=== PATIENT | female | born 1995 | race African-American/Black ===

== ENCOUNTER 2018-06-26 18:23 | Inpatient (IN) | payer MEDICAID, OTHER ==
[2018-06-26] MEDS ORDERED: Morphine 4 MG/ML VIAL ONE (20:23)
[2018-06-26] MEDS ORDERED: metroNIDAZOLE 500 MG/100 ML BAG ONE (20:24)
--- NOTE | 2018-06-26 21:54 | ULT ---
RIGHT UPPER QUADRANT ULTRASOUND 06/26/18 HISTORY: Right upper quadrant pain. Multiple longitudinal and transverse images of the right upper quadrant of the abdomen is obtained us ing a multihertz curvilinear transducer. Real time, color flow and spectral waveform doppler analysis demonstrate the liver to be unremarkable. The gallbladder is contracted and contains numerous echogenic areas compatible with gallstones. No ev idence of intrahepatic biliary dilatation seen. Common bile duct is also dilated measuring 7 mm. The visualized portions of the pancreas is unremarka ble. The right kidney is somewhat small but no evidence of significant hydronephrosis or masses. Right kidney measures 8.3 cm from pole to pole. IMPRESSION: 1. Contracted and stone filled gallbladder. 2. Common bile duct is moderately dilated. The findings compatible with cholelithiasis and possi ble choledocholithiasis. POS: [facility]
[2018-06-26] MEDS ORDERED: Ondansetron PF 4 MG/2 ML Vial IVP PRN (22:01)
[2018-06-26] MEDS ORDERED: Ondansetron ODT 4 MG TAB PO PRN (22:01)
[2018-06-26] MEDS ORDERED: Acetaminophen 325 MG TAB PO PRN (22:01)
[2018-06-26 22:54] VITALS: BMI 27.3
[2018-06-27] MEDS ORDERED: Morphine 2 MG/ML SYRINGE SLOW IVP PRN (00:50)
[2018-06-27] MEDS ORDERED: Morphine 4 MG/ML VIAL SLOW IVP PRN ×2 (01:21→04:15)
[2018-06-27] MEDS ORDERED: Morphine 4 MG/ML VIAL ONE (01:28)
[2018-06-27] MEDS: Ketorolac Tromethamine 30 MG/ML VIAL IVP PRN ×2 (04:19→11:46)
[2018-06-27] MEDS: metroNIDAZOLE 500 MG in Premix Bag 1 BAG IVPB SCH ×3 (05:25→22:37)
[2018-06-27 06:55] LABS: #Eosinphils 0.1 thou/uL (0.0-0.7); #Lymphocytes 1.8 thou/uL (1.20-3.40); #Monocytes 0.6 thou/uL (0.11-0.59); #Neutrophils 9.2 thou/uL (1.40-6.50); %Basophils 0.1 % (0.0-1.0); %Eosinophils 0.8 % (0.0-10.0); %Lymphocytes 15.2 % (21.0-51.0); %Monocytes 5.5 % (0.0-10.0); %Neutrophils 78.5 % (42.0-75.0); Hemoglobin 11.5 g/dL (12.0-16.0); Mean Corpuscular Hemoglobin 28.8 pg (27.0-31.0); Mean Platelet Volume 8.8 fL (7.4-10.4); Platelet Count 325 thou/uL (130-400); RBC Distribution Width 12.6 % (11.5-14.5); Red Blood Cell (RBC) Count 3.99 mill/uL (4.20-5.40); White Blood Cell (WBC) Count 11.7 thou/uL (4.8-10.8)
[2018-06-27 07:10] LABS: Anion Gap 9 mmol/L (10-20); BUN (Urea Nitrogen) 6 mg/dL (7.0-18.7); Calc. Creatinine Clearance 176 mL/min (70-130); Calcium 8.2 mg/dL (7.8-10.44); Carbon Dioxide 29 mmol/L (22-29); Chloride 103 mmol/L (98-107); Estimated GFR-MDRD Greater than 90; Glucose 114 mg/dL (70-105); Potassium 3.2 mmol/L (3.5-5.1); Sodium 138 mmol/L (136-145)
[2018-06-27] MEDS ORDERED: Prevnar 13-Val Conj/PF 0.5 ML SYRINGE IM ONE (09:00)
[2018-06-27] MEDS: Morphine 2 MG/ML SYRINGE SLOW IVP PRN ×3 (09:24→20:05)
--- NOTE | 2018-06-27 11:53 | PRG ---
DATE OF SERVICE: SUBJECTIVE: The patient reports that she is feeling a little bit better this morning. She does report that she ate some breakfast this morning. PHYSICAL EXAMINATION: VITAL SIGNS: T-max 98.1, pulse 93-102, respirations 16 to 20, O2 saturation 96 % on room air, BP 110/73. GENERAL APPEARANCE: Age-appropriate female. She is in no distress. Awake, alert, pleasant, and cooperative. HEENT: PERRL. No OP lesions. HEART: Regular rate and rhythm without murmurs, gallops, or rubs. LUNGS: Clear to auscultation bilaterally. No wheezes or rales. ABDOMEN: Reveals tenderness to palpation in the right lower quadrant and right upper quadrant, slightly more so in the right upper quadrant with a positive Chatterjee sign. EXTREMITIES: She has left-sided weakness and some muscle atrophy. No edema. PSYCH: The patient has a bit of a child-like manner, but otherwise has appropriate affect and behavior. LABORATORY DATA: White count 11.7, hemoglobin 11.5, platelets 325. Sodium 138, potassium 3.2, chloride 103, CO2 29, BUN 6, creatinine 0.56, glucose 114, and calcium 8.2. IMPRESSION AND PLAN: 1. Right upper quadrant abdominal pain with tenderness and positive Chatterjee sign with abdominal ultrasound revealing multiple gallstones and a contracted gallbladder with a common bile duct that is moderately dilated compatible with cholelithiasis and possible choledocholithiasis. Consult General Surgery. 2. Colitis. The patient had evidence of colitis on the CT scan indicating a very long segment of inflammatory appearance of the sigmoid and left colon with no evident cause. The patient is actually not tender in the suprapubic and left pelvic or left lower quadrant areas. The etiology of this is not known, certainly could be viral. The patient does report some diarrhea. Her stool Campylobacter and Shiga toxins were negative. Lactoferrin is elevated. She is on Levaquin and Flagyl and GI was consulted. 3. Chlamydia. The patient's chlamydial DNA probe was positive. The ER records indicate that she had "pelvic mass" bilaterally on her bimanual exam. The patient reports that she did not have significant tenderness on that exam. However, she does have some right lower quadrant tenderness on surface exam. We will consult gynecology to help elucidate this further to ensure the patient is not having some evidence of pelvic inflammatory disease. test was negative. 4. Bacterial vaginosis, should be adequately treated with Flagyl. 5. Urinary tract infection. Urine was positive. It may be secondary to the chlamydia. We will continue with the Levaquin and follow up cultures. 6. History of childhood brain tumors with the craniotomy resulted in some left- sided weakness. Job ID: [id number] [facility]
[2018-06-27] MEDS ORDERED: Azithromycin 250 MG TAB PO SCH (12:00)
--- NOTE | 2018-06-27 17:13 | PDOC.EVN ---
Event Note - Event Note Event Note: Consulted by Lisa. Consult dictated. 22 yo BF admitted with RLQ pain, diarrhea. Had +chlamydia testing outside. On exam now pt. is only tender to deep palpation low on right side. Abdominal USG shows gallstones, CT shows colitis. Has had Zithromax and Flagyl. Will obtain pelvic USG to further evaluate pelvis.
--- NOTE | 2018-06-27 18:37 | ULT ---
PELVIC ULTRASOUND: HISTORY: Pelvic pain. TECHNIQUE: Multiple longitudinal and transverse images of the pelvis are obtained using a Multi-Hertz curvilinea r transabdominal, as well as Multi-Hertz endovaginal transducer. FINDINGS: Real-time, color-flow, and spectral wave-form Doppler analysis demonstrates the uterus to measure 7 x 3.2 x 5.4 cm. No evidence of a uterine mass is seen. The endometrium has a double-wall thickness o f 10 mm. Both ovaries are visualized with good flood flow. The right ovary measures 2.4 x 1.4 x 1.9 cm, while the left measures 1.9 x 1.2 x 1.5 cm. A small amount of free fluid is seen in the cul-de-sac, adjacent to the right ovary. A small amount of fluid is seen in the endometrial canal. IMPRESSION: 1. Small amount of free pelvic fluid. 2. No evidence of ovarian masses or lesions. POS: [facility]
--- NOTE | 2018-06-27 19:31 | PDOC.EVN ---
Event Note - Event Note Event Note: Pelvic USG is nonfocal w/o evidence of mass, only small amount of fluid seen. As pain is focal rather than diffuse, suspect colitis as source rather than PID despite + chlamydia of cervix.. Discussed with Dr. Singh, he will change ABX to Zosyn and doxycycline.
--- NOTE | 2018-06-27 19:34 | PDOC.EVN ---
Event Note - Event Note Event Note: Rx plan discussed with architectural engineering teacher, abt's reconciled to address both GI and infection, will place pt in rocephin/flagyl for gi, and zithromax/doxy for as per [employer] recs'
[2018-06-27] MEDS: cefTRIAXone\\ROCEPHIN 1 GM in Sodium Chloride 0.9% 100 ML IVPB SCH (20:11)
[2018-06-27] MEDS ORDERED: Ondansetron ODT 4 MG TAB SL PRN (20:18)
[2018-06-27] MEDS ORDERED: Ondansetron PF 4 MG/2 ML Vial SLOW IVP PRN (20:19)
[2018-06-27] MEDS: Doxycycline 100 MG CAP PO SCH (20:25)
--- NOTE | 2018-06-27 21:44 | CON ---
DATE OF CONSULTATION: 06/27/2018 REASON FOR CONSULT: Colitis, gallstones, and abdominal pain. HISTORY OF PRESENT ILLNESS: Ms. Molina is a 22-year-old female from [place], [place], who came to the emergency room it seems secondary to abdominal pain for several days duration. 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 She is disabled, stays at home. She reports she has no real medical problems except for little bit of depression. In triage on Thursday in the emergency room, the complaint was intermittent cramping and stabbing right lower quadrant pain into her vaginal area, started when she had her period, but then her symptoms persisted mainly on the right side of the abdomen, sometimes right lower, sometimes right upper abdomen, although in the emergency room, they noted the right lower quadrant pain. Occasionally, it becomes sharp, lasted up to 15 seconds. She makes no mention of diarrhea until asked about it, then she did tell me that she has had a couple of loose stools for about 4 or 5 days since all this started. She went to the emergency room because the pain was so severe. She denied any vaginal discharge. Ultimately, she was found to have urine positive for Trichomonas and the vaginal exam positive for chlamydia. She had a CAT scan was some thickening in the pelvis organs and also with thickening of the descending colon and sigmoid colon, and she was found to have gallstones as well. The patient notes that her last sexual contact was about a week or two before her last menstrual cycle, it was about 3 weeks ago. She does note she has had some different contacts, although not very many. REVIEW OF SYSTEMS: CONSTITUTIONAL: Negative for fever, chills, headaches, vision change, or eye problems. HEENT: Negative. CARDIOVASCULAR: No chest pain, shortness of breath, dyspnea on exertion, or palpitations. RESPIRATORY: Negative for cough, shortness of breath, wheezing, or orthopnea. GI: Negative for constipation. Negative for nausea. Negative for rectal bleeding. Positive for two loose stools a day for the last 3 days. : Negative for dysuria, hematuria, vaginal bleeding, or vaginal discharge. MUSCULOSKELETAL: Negative. SKIN: Negative. NEUROLOGIC: Focal weakness in the left side, for which she uses a wheelchair and walk with a cane. MEDICATIONS: Medications at home, none. Medications here; 1. Tylenol. 2. Zithromax. 3. Toradol. 4. Levofloxacin. 5. Metronidazole. PHYSICAL EXAMINATION: GENERAL: She is resting comfortably in bed, greatly anticipating having dinner. She is thin. VITAL SIGNS: Temperature is 97.8. HEENT: Oropharynx, no lesions. NECK: Supple. There is no adenopathy. LUNGS: Clear. HEART: Regular rate and rhythm. No rubs, gallops, or murmurs. ABDOMEN: Pretty benign at this point in time. She points to the right upper abdomen, where she has pain, but there is no Chatterjee sign. There is no rebound. There is no guarding. EXTREMITIES: No clubbing, cyanosis, or edema. LABORATORY STUDIES: Stool is negative for Campylobacter and Ciguatoxins, white blood cells are positive. White count was 14 yesterday, 11.7 today; hemoglobin 11.5, platelet count 325. Comprehensive metabolic profile normal on admission. Lipase 18. 3.2. Lactic acid was 0.4, never elevated. Chlamydia probe was positive. Gonorrhea probe not detected. IMAGING DATA: Ultrasound of upper quadrant showed a contracted stone in gallbladder, mildly prominent common bile duct. Pelvic ultrasound showed no overt masses or lesions. Small amount of free pelvic fluid in the cul-de-sac. CT scan of the abdomen and pelvis showed a long mild segment of inflammatory change in the sigmoid and left colon per Radiology. ASSESSMENT: This 22-year-old female came to the hospital for lower abdominal cramping that radiated to the vaginal area, which seemed to not be typical of the cramping she has through her menstrual cycle. She has had a little bit of loose stool. She has no fever. The pain is more right-sided. Now, she feels better. She is eating dinner. She has had multiple findings including gallstones on ultrasound and a CAT scan, a questionable prominent common bile duct and some mild thickening of the sigmoid colon as well as positive vaginal exam for Trichomonas and chlamydia, but negative for gonorrhea. I do not think that she has symptomatic gallstones and talking with her, she never has pain after eating. She may have had an acute gastroenteritis. She has a little bit of thickening in the descending sigmoid colon and that may represent a little bit of colitis, it could be sexually mediated. However, she has no discharge or rectal pain or anal pain and she had no gonorrhea. The chlamydia may be a longstanding infection. RECOMMENDATIONS: I would observe her for now and treat her as you are. If she has further diarrhea, we would consider stool studies. HIV test offer that to her and she agrees. General Surgery is going to get a HIDA scan, it sounds like in talking with the nurses and that is okay, but I do not think that she has acute cholecystitis. Job ID: [id number]
--- NOTE | 2018-06-27 21:47 | CON ---
DATE OF CONSULTATION: REASON FOR CONSULT: Abdominal pain and gallstones. HISTORY OF PRESENT ILLNESS: Ms. Molina is a 22-year-old woman who reports onset of crampy intermittent right-sided abdominal pain since shortly after her period on 06/14. She states that it is not unusual for her to have this kind of pain after her period, but usually it goes away and this time it did not. It became so persistent and severe that she decided to come into the emergency room. A CT scan showed a possible gallstone, but no other gallbladder abnormality. She did have a redundant cecum and due to her thin body habitus, the appendix was difficult to clearly see, but there was a thin air-filled structure felt to be a normal appendix in the right pelvis and no secondary signs of appendicitis like stranding or fluid. The patient states she is feeling better since coming to the hospital. She states that the pain is worse when she gets up and moves around, but not worse when she eats. She ate a normal lunch today and has been eating throughout. She denies any nausea or vomiting. She has had a little diarrhea. The CT also showed some possible mild stranding in the sigmoid colon, but she does not have any tenderness on the left side. Gynecologic testing did come back positive for chlamydia. The patient does not have any previous history of pelvic inflammatory disease or tubo-ovarian abscess and the adnexa did not look abnormal on CT on admission. A gallbladder ultrasound showed what looked like a very small contracted gallbladder around an oblong stone. The bile duct was normal caliber. The patient denies any fevers or chills and now her only complaint is the abdominal pain, which she states is worse in the right lower quadrant. She denies any significant vaginal discharge or pain with intercourse. PAST MEDICAL HISTORY: Brain tumors treated with resection, radiation, and chemotherapy as a young child. PAST SURGICAL HISTORY: Brain tumor resection ALLERGIES: SHE HAS NO KNOWN DRUG ALLERGIES. MEDICATIONS: She does not take any medications as an outpatient. She is not on control, but was told that she is likely sterile due to chemotherapy as a child. Inpatient medications include levofloxacin and Flagyl as well as p.r.n. morphine, Tylenol, and Toradol. She was also started on Zithromax recently. SOCIAL HISTORY: The patient does not use illicit drugs. She smokes one pack per month and drinks socially on occasion. FAMILY HISTORY: Noncontributory. REVIEW OF SYSTEMS: 10-system review of systems is negative except per HPI. PHYSICAL EXAMINATION: VITAL SIGNS: The patient has been afebrile through her hospital stay. Other vital signs are normal. GENERAL: Reveals a pleasant young woman, in no acute distress. HEENT: Unremarkable except for alopecia. NECK: Supple without lymphadenopathy or thyroid nodules. HEART: Regular in its rate and rhythm without murmurs, rubs, or gallops. LUNGS: Clear to auscultation bilaterally. ABDOMEN: Soft and nondistended. She does not have any palpable masses or hernias. She is tender to palpation in the right lower quadrant, but does not exhibit any tenderness to palpation in the right upper quadrant. Apparently, she was tender in the right upper quadrant earlier in her hospital stay according to some of her other doctor notes, however. She also does not exhibit any pain in the left abdomen. She does not have any rigidity, rebound, or guarding. EXTREMITIES: Warm and well perfused without edema. NEUROLOGIC: She does have some atrophy related to her brain surgery, but otherwise no acute focal findings. PSYCHIATRIC: Alert, oriented, and appropriate. LABORATORY DATA: White count was mildly elevated on admission at 14, has come down to 11.7. She does have a slight left shift, hematocrit 37, and platelets 325. Electrolytes were unremarkable. Her potassium was low this morning at 3.2. LFTs were all normal as was lipase. UA had moderate leukocyte esterase, but was contaminated with 4 to 6 squamous cells. She had clue cells present on her vaginal swab and positive chlamydia, but negative gonorrhea. DIAGNOSTIC STUDIES: CT and ultrasound images were reviewed with the radiologist and I agree with their written report. ASSESSMENT: Right-sided abdominal pain of unclear etiology. On my examination , she did not exhibit any tenderness in the right upper quadrant, but apparently this has been somewhat variable. She does not have any exacerbation of her symptoms with eating, which would be typical with biliary colic. On my examination, all of her tenderness was in the right lower quadrant, which could be related to her chlamydia. I think it is very unlikely that she has appendicitis since she has been having the symptoms for 2 weeks now and has never had any fevers or chills. She ate a full lunch, so I favor getting a HIDA scan. The gallbladder definitely looks abnormal, but it does not look typical for acute cholecystitis; instead it looks very small and contracted. She may benefit from laparoscopic cholecystectomy, but currently I doubt that her gallbladder is responsible for her symptoms. She is on appropriate antibiotics for cholecystitis if this is indeed present. Gynecology has been consulted and has ordered a pelvic ultrasound as well. I will make her n.p.o. after midnight and follow up with her after her HIDA scan. Job ID: [id number] [facility]
--- NOTE | 2018-06-28 00:07 | CON ---
DATE OF CONSULTATION: 06/27/2018 REASON FOR CONSULTATION: Abdominal pain with positive chlamydia. PMH: Brain cancer diagnosed at age 53 year old Past surgical history: Craniotomy at 3 years old Past social history: Denies alcohol, tobacco, or drug use HISTORY OF PRESENT ILLNESS: This is a very pleasant 22-year-old female, with history of brain cancer, that presents with abdominal pain since June 14. The patient states that the pain is located in the right upper quadrant and has since radiated down into the right lower quadrant. She states that prior to coming into the emergency department on June 26, she was in such a significant amount of pain that she could not leave her bed to even get up and brush her teeth or eat. She called an on-call nurse who instructed her to go to the emergency department for evaluation. Upon arrival to the emergency department, the patient had several labs and imaging performed. Imaging consisted of an abdominal and pelvis CT, which showed very mild long segment inflammatory appearance of the sigmoid colon and left colon. There were no other acute findings to include no mention of free fluid in the pelvis. Laboratory findings were significant for white cell count of 14 and UA with moderate leukocyte esterase and 1+ bacteria. The wet mount was also performed and clue cells were present indicating bacterial vaginosis. The patient was also noted to be positive for chlamydia. The patient is currently being treated with azithromycin and Flagyl for chlamydia and bacterial vaginosis, respectively. The patient is also being treated with levofloxacin which will presumptively treat the UTI. The patient states that the pain is intermittent, but the morphine which she had been given here in the hospital has been helping. When it does come on, it is sharp in nature. She denies any nausea, vomiting, fever, chills, any vaginal discharge, or dyspareunia. The patient states that she has been sexually active in the past, although she has not been sexually active in the last several months. The patient has never had any STDs previously. She states that she has never had a pelvic exam prior to coming to the emergency department. Thus, the patient has never had a Pap smear. The patient reports that her menstrual cycle is regular, her last menstrual period was on June 07. She notes that her flow is normal. The patient did mention that for the past week she has been having diarrhea that is "weird" color. The patient states that she has not had any formed stools during the period in which she has had the diarrhea. PHYSICAL EXAMINATION: GENERAL: The patient is alert and oriented x3, in no acute distress. HEENT: Pupils round and reactive to light and accommodation. Extraocular muscles intact. Sclera clear. CARDIO: Regular rate and rhythm. RESPIRATORY: No acute respiratory distress. Nonlabored breathing. EXTREMITIES: No edema. Pulses intact. GI: Tender to palpation, particularly in the right lower quadrant. The patient was also noted to have some right upper quadrant tenderness. No rebound tenderness. No suprapubic tenderness. Bowel sounds positive. LABORATORY FINDINGS: CBC with initial white blood cell count of 14.0, repeat 11.7, hemoglobin 11.5, hematocrit 37.1, platelet count of 325. CMP showed sodium 138, potassium 3.2, chloride 103, bicarb 29, BUN 6, creatinine 0.56, glucose 114, lactic acid 0.4, calcium 9.6, T-bili of 0.4, AST 20, ALT 31, alkaline phosphatase 115, serum total protein 7.7, albumin 3.7, and a lipase of 18. UA showed moderate leukocyte esterase with 1+ bacteria. Wet prep showed clue cells indicating the presence of bacterial vaginosis. The patient was positive for chlamydia. There was a stool lactoferrin that was elevated. Campylobacter and E coli toxins were negative. IMAGING STUDIES: CT abdomen and pelvis with IV and oral contrast showed very mild long segmental inflammatory appearance of the sigmoid colon in left colon. The cause was not evident. Clinical correlation regarding signs and symptoms of sigmoid and left colon colitis recommended. Abdominal ultrasound showed contracted and stone filled gallbladder. Common bile duct moderately dilated. ASSESSMENT AND PLAN: This is a 22-year-old female that presents with abdominal pain 1. Possible colitis: With the patient's history of recent diarrhea and elevated lactoferrin as well as abdominal pain, the patient could potentially have colitis contributing to symptoms. Defer to primary team for further management. General Surgery has been consulted and has evaluated the patient. There is concern cholelithiasis as cause of pain. There is also concern potentially for appendicitis, although CT does not comment on inflammatory appendix. 2. Concern for pelvic inflammatory disease: Unlikely based on the patient's current presentation; however, the patient is being treated appropriately with azithromycin and Flagyl for chlamydia and bacterial vaginosis respectively. Complete pelvic ultrasound ordered to further evaluate. We will hold off on starting additional antibiotics for treatment of pelvic inflammatory disease at this time. 3. Brain cancer: Aware. The patient is not currently on chemo or radiation therapy. Job ID: [id number] [facility]
--- NOTE | 2018-06-28 05:15 | HP ---
PRIMARY CARE DOCTOR: Dr. Lupillo Chisholm. CODE STATUS: Full code. TIME OF EVALUATION: 9:30 p.m. CHIEF COMPLAINT: Abdominal pain. 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 The pain was severe in the left lower quadrant with no clear triggers, no alleviating factors. Pain is colic like with cramps, improved with pain medications given in the ER, associated with diarrhea that she got today. REVIEW OF SYSTEMS: CONSTITUTIONAL: No fever or chills. The patient reported generalized weakness. RESPIRATORY: No cough, sputum production, or shortness of breath. CARDIOVASCULAR: No chest pain or palpitation. GASTROINTESTINAL: The patient has nausea, no vomiting, diarrhea, abdominal pain. .NET ARCHITECT: No dizziness, headache, or feeling lightheaded. The patient has residual left-sided weakness from a brain tumor when she was a kid. GENITOURINARY: No burning on urination. EXTREMITIES: No leg swelling. All other systems were reviewed and negative except for the findings mentioned above. PAST MEDICAL HISTORY: As mentioned in the HPI. SURGICAL HISTORY: Brain tumor removal at the age of 3. PAST PSYCH HISTORY: Includes depression. SOCIAL HISTORY: The patient smokes cigarettes. Lives at home alone. FAMILY HISTORY: Father with diabetes. KNOWN ALLERGIES: No known drug allergies. REPORTED MEDICATIONS: None. PHYSICAL EXAMINATION: VITAL SIGNS: On presentation, blood pressure 120/85 with heart rate 93, respiratory rate was 16, temperature 98, pain was 2/10 during my examination after getting pain medication. GENERAL APPEARANCE: The patient is alert, oriented, not in acute distress unless when she had the pain. HEENT: Eyes, normal conjunctivae. Moist oral mucosa. Anicteric. No JVD. RESPIRATORY: Bilateral air entry. No rales. No wheezing. Symmetric expansion. CARDIOVASCULAR: Normal rate, regular rhythm. No murmurs. No gallop. No edema. ABDOMEN: Soft. Normal bowel sounds. The abdomen is tender. MUSCULOSKELETAL: Baseline range of motion and strength. No tenderness. SKIN: Warm and intact. No pallor. No rash. No redness. Peripheral pulses are present. Capillary refill seems to be intact. NEUROLOGIC: No evidence of any new focal weakness. The patient does have residual left-sided weakness from brain tumor which was acute. PSYCH: The patient is in good mood. No anxiety. Optimal judgment. IMAGING DATA: Abdominal ultrasound was done. The patient has contracted and stone filled gallbladder, bile duct is moderately dilated. The findings are compatible with cholelithiasis, possible choledocholithiasis. LABORATORY DATA: Labs were reviewed. Hematology; white count 14, hemoglobin 12.3, MCV 89.3, platelet count 259. Chemistry; sodium 140, potassium 3.6, chloride 102, carbon dioxide 28, anion gap 14, BUN 13, creatinine 0.6, GFR greater than 90, glucose 97, lactic acid 0.4, calcium 9.6, total bilirubin 0.4. LFTs were negative. Lipase 18. Urine was done, was positive with 21 to 50 leukocytes in urine. Also wet prep was done. The patient has clue cells and Chlamydia was detected by DNA and PCR. Gonorrhoeae on DNA and PCR was negative. ASSESSMENT AND PLAN: The patient will be placed in the hospital with following medical problems: 1. Acute choledocholithiasis and cholecystitis. The patient has been placed on antibiotics, and GI has been consulted, pain medications as needed. 2. Sigmoid and left colon colitis as seen on the CAT scan. The patient antibiotics, probably this is the etiology for diarrhea. We will send some stool samples and adjust the treatment of antibiotics as needed. For the severe abdominal pain, the patient is needing opioid medication for optimal control; discussed the patient is at high risk for complications. 3. Deep venous thrombosis prophylaxis. 4. Bacterial vaginosis. The patient has positive clue cells in the wet prep and also is positive for Chlamydia, so the patient being started on antibiotics; this can be followed as outpatient and the patient is ready to go. 5. Chlamydia vaginitis. The patient has positive secretions for Chlamydia; the patient being started on antibiotics, this can be followed as outpatient. Job ID: [id number]
[2018-06-28] MEDS: metroNIDAZOLE 500 MG in Premix Bag 1 BAG IVPB SCH ×3 (05:16→23:22)
--- NOTE | 2018-06-28 08:49 | PDOC.PN ---
- Subjective Encounter Start Date: 06/28/18 Encounter Start Time: 11:00 Subjective: Patient with continued pain. No more in pelvis/anterior abdomen, now most -: severe in RUQ and right flank. No current nausea or vomiting. - Objective Resuscitation Status - Order Detail: 06/26/18 22:01 Resuscitation Status Routine Resuscitation Status: FULL: Full Resuscitation MAR Reviewed: Yes Vital Signs & Weight: Vital Signs (12 hours) Temp Pulse Resp BP Pulse Ox 06/28/18 03:48 97.7 F 92 16 100/58 L 93 L 06/27/18 23:38 98.5 F 88 16 119/79 95 Weight Weight 159 lb I&O: 06/27/18 06/28/18 06/29/18 06:59 06:59 06:59 Intake Total 300 Balance 300 Result Diagrams: 06/27/18 06:23 06/27/18 06:23 Additional Labs: Accuchecks 06/27/18 12:15 POC Glucose 95 Phys Exam - Physical Examination Constitutional: NAD HEENT: moist MMs Respiratory: no wheezing, no rales, no rhonchi Cardiovascular: RRR Gastrointestinal: soft, positive bowel sounds TTP RUQ and right flank, mild guarding, no rebound Musculoskeletal: no edema Neurological: non-focal, moves all 4 limbs Psychiatric: normal affect, A&O x 3 Dx/Plan (1) Abdominal pain Code(s): R10.9 - UNSPECIFIED ABDOMINAL PAIN Status: Acute Qualifiers: Abdominal location: right lower quadrant Qualified Code(s): R10.31 - Right lower quadrant pain Comment: radiating to vaginal area, treating for chlamydia (2) Chlamydia Code(s): A74.9 - CHLAMYDIAL INFECTION, UNSPECIFIED Status: Acute Comment: On doxycycline (3) Gallstones Code(s): K80.20 - CALCULUS OF GALLBLADDER W/O CHOLECYSTITIS W/O OBSTRUCTION Status: Acute Comment: appreciate surgery imput, HIDA scan negative (4) Colitis Code(s): K52.9 - NONINFECTIVE GASTROENTERITIS AND COLITIS, UNSPECIFIED Status : Acute Comment: Elevated Lactoferrin in stool, other stool studies negative, On Rocephin and Metronidazole, mild on CT (5) Bacterial vaginosis Code(s): N76.0 - ACUTE VAGINITIS; B96.89 - OTH BACTERIAL AGENTS THE CAUSE OF DISEASES CLASSD ELSWHR Status: Acute Comment: on Metronidazole - Plan cont current plan of care, continue antibiotics HIDA negative but U/S with definite gallstones, I discussed the case -: with Dr. Sanchez, given fluctuating symptoms and focus in RUQ patient -: is likely having symptomatic gallstones, she will see patient today and -: possible cholecystectomy, keeping NPO for now * . - Discharge Day Encounter end time: 11:10
[2018-06-28] MEDS ORDERED: Potassium Chloride 20 MEQ TAB PO SCH (09:00)
[2018-06-28] MEDS ORDERED: Sodium Chloride 0.9% 10 ML ONE (09:11)
[2018-06-28] MEDS: Ketorolac Tromethamine 30 MG/ML VIAL IVP PRN (10:23)
[2018-06-28] MEDS: Doxycycline 100 MG CAP PO SCH ×2 (10:24→23:27)
--- NOTE | 2018-06-28 11:22 | NM ---
HEPATOBILIARY SCAN: HISTORY: Patient with gallstone. Evaluate for cholecystitis. DOSE: 5.2 mCi of Technetium 99m Choletec. In addition, 2 mg of morphine was also given. FINDINGS: Hepatobiliary scan was performed. Images demonstrate uptake of the radioisotope with concentration s een in the biliary system passing into the small bowel. The gallbladder initially was not visualized after 60 minutes. Subsequently, 2 mg of morphine was given IV. Repeat imaging for 30 minutes was p erformed. Immediately after injection of morphine, the gallbladder began to be visualized. It was c learly visible by 30 minutes suggesting no evidence of acute cholecystitis. IMPRESSION: Visualization of gallbladder after morphine injection. The findings are not suggestive of cholecysti tis. Gallbladder is contracted. POS: BÁRBARA
[2018-06-28 14:55] LABS: BHCG - Serum Negative (NEGATIVE); Pregs Control Background? CLEAR/WHITE (CLR/WHITE); Pregs Control Bar Appear? YES (CONTROL BAR)
[2018-06-28] MEDS ORDERED: PROPOFOL 200 MG/20 ML VIAL ONE (15:14)
[2018-06-28] MEDS ORDERED: Rocuronium Bromide 10 MG/ML (10ML VIAL) ONE (15:14)
[2018-06-28] MEDS ORDERED: Ondansetron PF 4 MG/2 ML Vial ONE (15:14)
[2018-06-28] MEDS ORDERED: Dexamethasone 20 MG/5 ML VIAL ONE (15:14)
[2018-06-28] MEDS ORDERED: Glycopyrrolate 0.2 MG/ML 5 ML SYRINGE ONE (15:14)
[2018-06-28] MEDS ORDERED: Lidocaine 1% PF 5 ML VIAL ONE (15:14)
[2018-06-28] MEDS ORDERED: Ketorolac Tromethamine 30 MG/ML VIAL ONE (15:14)
[2018-06-28] MEDS ORDERED: Bupivacaine/Epinephrine 0.25% 30 ML VIAL ONE (18:04)
[2018-06-28] MEDS ORDERED: Fentanyl 100 MCG/2 ML VIAL ONE ×2 (18:11→21:12)
[2018-06-28] MEDS ORDERED: Midazolam HCl 2 mg/2 ml Vial ONE (18:18)
[2018-06-28] MEDS ORDERED: Iothalamate Meglumine 60% 50 ML VIAL FS ONE (19:15)
--- NOTE | 2018-06-28 20:41 | RAD ---
INTRAOPERATIVE CHOLANGIOGRAM: History: Cholecystectomy. Exposure: 19.2 seconds, 2.54 mGy*cm^2 FINDINGS: Two intraoperative fluoroscopic images demonstrate opacification of a normal caliber intra and extrah epatic biliary system. No evidence of a persistent filling defect. Contrast does opacify the duodenum . IMPRESSION: Intraoperative fluoroscopy as above. POS: BÁRBARA
[2018-06-28] MEDS ORDERED: Ondansetron HCl/PF 4 MG/2 ML Vial IVP PRN (21:26)
[2018-06-28] MEDS ORDERED: Promethazine HCl 25 MG/ML VIAL IM PRN (21:26)
[2018-06-28] MEDS ORDERED: Promethazine HCl 25 MG/ML VIAL SLOW IVP PRN (21:26)
[2018-06-28] MEDS: cefTRIAXone\\ROCEPHIN 1 GM in Sodium Chloride 0.9% 100 ML IVPB SCH (22:02)
[2018-06-28] MEDS: Morphine 2 MG/ML SYRINGE SLOW IVP PRN (22:08)
[2018-06-29] MEDS ORDERED: HYDROcodone/Acetaminophen 5/325 mg Tablet PO PRN (01:20)
[2018-06-29 05:07] LABS: #Lymphocytes 0.7 thou/uL (1.20-3.40); #Monocytes 0.1 thou/uL (0.11-0.59); #Neutrophils 10.2 thou/uL (1.40-6.50); %Basophils 0.1 % (0.0-1.0); %Lymphocytes 6.7 % (21.0-51.0); %Monocytes 0.8 % (0.0-10.0); %Neutrophils 92.4 % (42.0-75.0); Hemoglobin 11.8 g/dL (12.0-16.0); Mean Corpuscular HGB CONC 30.6 g/dL (32.0-36.0); Mean Corpuscular Hemoglobin 28.6 pg (27.0-31.0); Mean Corpuscular Volume 93.6 fL (78.0-98.0); Mean Platelet Volume 8.6 fL (7.4-10.4); Platelet Count 340 thou/uL (130-400); RBC Distribution Width 12.7 % (11.5-14.5); Red Blood Cell (RBC) Count 4.14 mill/uL (4.20-5.40)
[2018-06-29 05:26] LABS: Anion Gap 15 mmol/L (10-20); BUN (Urea Nitrogen) 8 mg/dL (7.0-18.7); Calc. Creatinine Clearance 165 mL/min (70-130); Calcium 9.1 mg/dL (7.8-10.44); Carbon Dioxide 25 mmol/L (22-29); Chloride 104 mmol/L (98-107); Estimated GFR-MDRD Greater than 90; Glucose 122 mg/dL (70-105); Potassium 4.5 mmol/L (3.5-5.1); Sodium 139 mmol/L (136-145)
[2018-06-29 05:44] LABS: HIV (1/2) Antibody/Antigen Non-Reactive (NonReactive); HIV 1/2 INDEX 0.21 S/CO (<1.00)
[2018-06-29] MEDS: metroNIDAZOLE 500 MG in Premix Bag 1 BAG IVPB SCH ×2 (05:50→13:53)
[2018-06-29] MEDS: Ketorolac Tromethamine 30 MG/ML VIAL IVP PRN (06:40)
--- NOTE | 2018-06-29 08:07 | PDOC.PN ---
- Subjective Encounter Start Date: 06/29/18 Encounter Start Time: 16:10 Subjective: Patient with improvement in the sharp pain with inspiration since the -: surgery. She just feels very bloated from the gas from the surgery. -: Reportedly had lots of adhesions concerning for endometriosis. - Objective Resuscitation Status - Order Detail: 06/26/18 22:01 Resuscitation Status Routine Resuscitation Status: FULL: Full Resuscitation MAR Reviewed: Yes Vital Signs & Weight: Vital Signs (12 hours) Temp Pulse Resp BP Pulse Ox 06/29/18 04:28 97.4 F L 66 16 128/81 95 06/29/18 03:35 77 18 126/72 06/29/18 01:47 63 16 122/86 06/29/18 00:35 66 16 129/84 06/29/18 00:05 97.4 F L 76 16 134/78 93 L 06/28/18 23:35 60 16 133/80 95 06/28/18 23:05 97.9 F 69 16 128/67 94 L 06/28/18 22:35 72 16 134/78 06/28/18 22:20 126/83 06/28/18 22:05 128/76 06/28/18 22:00 97.4 F L 83 18 127/81 95 06/28/18 21:50 97.4 F L 83 18 127/81 95 Weight Admit Weight 159 lb Weight 159 lb Result Diagrams: 06/29/18 04:23 06/29/18 04:23 Phys Exam - Physical Examination Constitutional: NAD HEENT: moist MMs Respiratory: no wheezing, no rales, no rhonchi Cardiovascular: RRR, no significant murmur Gastrointestinal: soft, positive bowel sounds mild TTP just right over surgical site, much improved Neurological: non-focal, moves all 4 limbs Psychiatric: normal affect, A&O x 3 Dx/Plan (1) Chlamydia Code(s): A74.9 - CHLAMYDIAL INFECTION, UNSPECIFIED Status: Acute Comment: On doxycycline (2) Gallstones Code(s): K80.20 - CALCULUS OF GALLBLADDER W/O CHOLECYSTITIS W/O OBSTRUCTION Status: Acute Comment: s/p laproscopic cholecystectomy 05/31/2018 (3) Colitis Code(s): K52.9 - NONINFECTIVE GASTROENTERITIS AND COLITIS, UNSPECIFIED Status : Acute Comment: Elevated Lactoferrin in stool, other stool studies negative, On Rocephin and Metronidazole, mild on CT (4) Bacterial vaginosis Code(s): N76.0 - ACUTE VAGINITIS; B96.89 - OTH BACTERIAL AGENTS THE CAUSE OF DISEASES CLASSD ELSWHR Status: Acute Comment: on Metronidazole - Plan cont current plan of care, continue antibiotics, DVT proph w/SCDs Patient cleared for discharge by Dr. Sanchez. Will need to complete -: 10 day course of abx for colitis and Chlamydia. F/u with surgery in -: 2 weeks. May need Process Development Manager followup as well. * . - Discharge Day Encounter end time: 16:30
[2018-06-29] MEDS: Doxycycline 100 MG CAP PO SCH (09:20)
[2018-06-29 09:55] LABS: Albumin 3.2 g/dL (3.5-5.0)
[2018-06-29 09:58] LABS: Globulin 3.7 g/dL (2.4-3.5); Protein, Total 6.9 g/dL (6.0-8.3)
[2018-06-29 10:00] LABS: Bilirubin, Total Less than 0.2 mg/dL (0.2-1.2)
[2018-06-29 10:01] LABS: Alkaline Phosphatase 106 U/L (40-150)
[2018-06-29 10:03] LABS: AST (SGOT) 48 U/L (5-34)
[2018-06-29 10:04] LABS: ALT (SGPT) 36 U/L (8-55)
[2018-06-29 13:10] VITALS: BP 109/71; TEMP 97.8
--- NOTE | 2018-06-29 17:35 | PDOC.GSPN ---
Surgery Progress Note: Subj - Subjective Narrative: Patient feels much better, Right sided pain is gone since surgery. Incisions look good. AST slightly up but other labs OK and vitals look good. A/P) Doing well. OK to discharge home from surgical standpoint. Pain med Rx in chart, although likely will not need; has only had toradol post-op. RTC Sanchez 2 weeks. Surgery Progress Note: Obj - Vital signs Vital signs: Vital Signs - Most Recent Temp Pulse Resp BP Pulse Ox 97.8 F 87 18 109/71 98 06/29/18 12:00 06/29/18 12:00 06/29/18 12:00 06/29/18 12:00 06/29/18 12:00 Surgery Progress Note: Results - Labs Result Diagrams: 06/29/18 04:23 06/29/18 04:23 Lab results: Laboratory Results - last 24 hr 06/29/18 06/29/18 04:23 04:23 Sodium 139 Potassium 4.5 Chloride 104 Carbon Dioxide 25 Anion Gap 15 BUN 8 Creatinine 0.60 Estimated GFR (MDRD) Greater than 90 Glucose 122 H Calcium 9.1 Total Bilirubin Less than 0.2 L AST 48 H ALT 36 Alkaline Phosphatase 106 Serum Total Protein 6.9 Albumin 3.2 L Globulin 3.7 H Albumin/Globulin Ratio 0.9 L HIV 1&2 Antigen & Ab Non-Reactive
--- NOTE | 2018-06-29 20:12 | PDOC.OP ---
Operative Note - Operative Note Operative Note: PROCEDURE: Laparoscopic cholecystectomy with intraoperative cholangiogram SURGEON: Tremaine Sanchez M.D. DATE OF PROCEDURE: 06/28/2018 PREOPERATIVE DIAGNOSIS: Cholelithiasis and cholecystitis POSTOPERATIVE DIAGNOSIS: Cholelithiasis and cholecystitis HISTORY: Patient with right-sided abdominal pain which has been somewhat variable in location. She was found to have a contracted gallbladder packed with stones which filled slowly on HIDA scan after morphine administration only. Recommendation was made to proceed with laparoscopic cholecystectomy. She was also positive for chlamydia and CT was suggestive of sigmoid colitis so intraoperative examination of the pelvic structures was also planned. FINDINGS: Extensive adhesions around a very abnormal thickened contracted gallbladder which was packed with stones and intrahepatic. Due to the short wide cystic duct a cholangiogram was performed to clarify anatomy, and this was normal. Multiple acute-appearing pelvic adhesions consistent with the patient's diagnosis of colitis. Normal-appearing appendix. Normal-appearing right ovary and tube. The left ovary couldn't be visualized due to sigmoid adhesions but the tube appeared somewhat swollen. The patient had punctate whitish deposits in the pelvis suspicious for endometriosis. PROCEDURE IN DETAIL: After informed consent was obtained and appropriate preoperative antibiotics were administered, the patient was taken to the operating room and placed in the supine position and general endotracheal anesthesia was administered. The stomach was decompressed with an OG tube and the abdomen was prepped and draped in standard sterile fashion. Local anesthesia was infused to the skin and subcutaneous tissues at the umbilical level. A transverse skin incision was made. The fascia was elevated and a Veress needle was placed into the abdominal cavity without difficulty. Opening pressure was less than 5 and carbon dioxide gas easily insufflated to an intra- abdominal pressure of 15, which the patient tolerated well. The Veress needle was withdrawn and a [place] port advanced under direct vision. The abdominal cavity was carefully examined. There was no evidence of Veress needle or of trocar injury. Local anesthesia was infused to the skin and subcutaneous tissues at the epigastric, right upper quadrant, and right lateral abdominal sites and trocars were placed under direct vision of the laparoscope. The gallbladder was completely obscured by dense omental adhesions. These were taken down through the avascular plane and the gallbladder was exposed. The common transverse colon and duodenum were clearly identified and were well away from the gallbladder. The fundus of the gallbladder was grasped and retracted superiorly, with some difficulty due to additional adhesions to the liver inferior to the gallbladder. These were also taken down under direct laparoscopic vision using careful electrocautery and staying well away from the transverse colon and duodenum. The infundibulum was grasped and retracted laterally. The serosa was stripped inferiorly at the level of the neck of the gallbladder exposing the cystic duct and artery which was traced clearly to its insertion in the gallbladder. This appeared quite wide and short and due to dense fibrosis and the triangle of closed the common duct was not clearly visible although the suspected location was well away from the gallbladder. Due to the size of the cystic duct and the dense fibrosis in this region the decision was made to perform a cholangiogram. An incision was made in the cystic duct inferior to the clip and the cystic duct was palpated with no stones palpable. Clear bile was seen to flow from the cystic duct incision. A cholangiogram catheter was introduced and placed into the cystic duct and secured with a clip. A cholangiogram was obtained which showed an adequate length of cystic duct, with the securing clip lateral to the common duct. There was normal filling of the common bile duct with free flow of contrast into the duodenum. There was normal retrograde flow into the common hepatic duct beyond the level of the bifurcation without filling defects. The cholangiogram catheter was removed and the cystic duct clipped below the incision in the cystic duct. The cystic duct was divided between these clips and the previously placed clip. The cystic artery was noted to be present posterior to the cystic duct and also occluded by the clips. The gallbladder was then dissected free of the gallbladder bed using hook electrocautery. This was done with difficulty due to the intrahepatic nature of the gallbladder and the severe fibrosis making definition of a plane difficult. The gallbladder was entered at multiple points and the stones removed from the lumen of the gallbladder using a stone grasper. The majority of the gallbladder wall was able to be removed, although a portion near the fundus was left in place and thoroughly cauterized. The area of the cystic duct and artery stumps was examined. The clips were in good position completely across these structures and there was no bleeding and no leakage of bile. The gallbladder was then placed into an EndoCatch bag and drawn out through the epigastric incision. The epigastric trocar was replaced and the operative site easily irrigated to clear. There was no significant bleeding or spillage of bile. Attention was then turned to the pelvis. The patient had extensive filmy acute-appearing adhesions which were able to be taken down bluntly between the small intestine and the cecum which was redundant and lying in the pelvis. The seton was brought out of the pelvis and the appendix identified. This was normal in appearance except for some reactive adhesions. The small bowel was likewise normal in appearance except for some adhesions. The right ovary and tube appeared normal although there were some whitish deposits along the pelvic sidewall near the right ovary which were suspicious for endometriosis. The sigmoid colon was adherent to the pelvic sidewall on the left so the left ovary was unable to be examined but the left fallopian tube appeared slightly swollen. The ovary was normal in appearance and the bladder was distended but normal. The epigastric trocar was removed and the fascia closed under direct laparoscopic vision with a 0 Vicryl suture on a GraNee needle in a [id number] manner with excellent technical result. The right upper quadrant and right lateral abdominal trocars were removed and hemostasis verified. Carbon dioxide gas was allowed to desufflate through the umbilical trocar which was then removed. The umbilical fascia was clearly visible and was reapproximated with a 0 Vicryl suture on a UR 6 needle under direct vision with excellent result. The skin incisions were closed with 4-0 subcuticular Monocryl sutures and Dermabond dressings were placed. The patient was extubated and taken to the recovery room in good condition. There were no complications. ESTIMATED BLOOD LOSS: Minimal. SPECIMEN : Gallbladder and contents.
--- NOTE | 2018-06-30 01:46 | DIS ---
DATE OF ADMISSION: 06/26/2018 DATE OF DISCHARGE: 06/29/2018 PRIMARY CARE PHYSICIAN: Dr. Joaquín Chisholm. REASON FOR ADMISSION: Abdominal pain and gallstones. DIAGNOSES AT DISCHARGE: 1. Symptomatic gallstones, status post cholecystectomy. 2. Chlamydia. 3. Colitis. 4. Bacterial vaginosis. 5. Possible endometriosis. PROCEDURES: 1. Ultrasound of the abdomen showing contracted stone filled gallbladder and moderately dilated common bile duct. 2. CT of the abdomen with contrast performed at an outside emergency room showing very mild long segment inflammation appearance of the sigmoid colon and left colon with a normal appendix. 3. Pelvic ultrasound showing small amount of free pelvic fluid. No evidence of ovarian masses or lesions. 4. Hepatobiliary scan showing normal visualization of the gallbladder with good contraction. No evidence for acute cholecystitis. 5. Laparoscopic cholecystectomy with intraoperative cholangiogram that was normal. There were adhesions noted during the surgery were concerning for possible endometriosis. CONSULTATIONS: 1. General Surgery, Dr. Sanchez. 2. UPHOLSTERY TECHNICIAN, Dr. Migel Krishna. 3. Gastroenterology, Dr. Cummins. SUMMARY OF HOSPITAL COURSE: This is a 22-year-old Afro-[place] female with past medical history significant for brain tumor as a child, status post surgical resection, chemo, and radiation. She came in with some significant abdominal pain right upper quadrant, right lower quadrant, and pelvic seemed to have started after her periods and lasted for several weeks and got severely worst before she came, and she also had some diarrhea. The patient was seen in the [facility] room. She had a CT scan which showed some mild colitis. Pelvic exam was done there and a culture was sent which came back with chlamydia and bacterial vaginosis. The patient was transferred here due to severe tenderness in the right upper quadrant. She had ultrasound done, which showed contracted gallbladder and gallstones. General Surgery and GI were consulted. They did not think that she had acute cholecystitis and a HIDA scan which confirmed that. However, she had resolution of her pelvic pain and her diarrhea, but had continued severe right upper quadrant pain, worse when she takes a deep breath. Eventually, Dr. Sanchez took out her gallbladder laparoscopically. There was a normal intraoperative cholangiogram as above. The patient had significant improvement in her pain with deep breathing and her right upper quadrant pain after cholecystectomy. There was noted to be some adhesions in her pelvis during the operation, they are concerning for possible endometriosis. The patient did have an UPHOLSTERY TECHNICIAN consult and they recommended adjusting her medications and she is being sent home on doxycycline, ceftriaxone, and metronidazole to complete a 10-day course of antibiotics. The patient was doing better the day of discharge, still just eating very soft foods small amounts, and stay away from fatty foods for now. DISCHARGE MANAGEMENT: Discharged home. FOLLOWUP: Follow up with Dr. Sanchez in [address] Chisholm in 1 week. ACTIVITY: As tolerated. DIET: Regular diet low fat and with soft foods first and advance as tolerated. MEDICATIONS: 1. Cefdinir 300 mg twice a day, 14 tablets dispensed. 2. Colace 100 mg twice a day, 20 caps, and just take this twice a day if she is having problems with any constipation and she can stop it if she has soft bowel movements. 3. Doxycycline 100 mg twice a day, 14 caps dispensed. 4. Metronidazole 500 mg 3 times a day, 21 tablets dispensed. 5. Ondansetron 4 mg q.6 hours as needed for nausea and vomiting, [address] Sanchez wrote for [place] 5/325 one tablet q.4 hours as needed for significant pain, 10 tabs dispensed. Job ID: [id number]
== END 2018-06-29 17:39 | disposition home or self-care (01) | DRG 419 ==
LOC: ERS 18:23 → ONC 20:45 → OBSVTOIN 20:45
PROVIDERS: ADMIT Hospitalist; ATTEND Hospitalist
PROC: 0FT44ZZ Resection of Gallbladder, Percutaneous Endoscopic Approach (ICD-10-PCS; principal; 2018-06-26)
PROC: BF101ZZ Fluoroscopy of Bile Ducts using Low Osmolar Contrast (ICD-10-PCS; 2018-06-26)
DX: K80.42 Calculus of bile duct with acute cholecystitis without obstruction (principal); N76.0 Acute vaginitis; B96.89 Other specified bacterial agents as the cause of diseases classified elsewhere; A56.02 Chlamydial vulvovaginitis; N80.9 Endometriosis, unspecified
CPT/HCPCS: 36415; 36416; 47532; 76705; 76856; 78226; 80048; 83630; 84703; 85025; 87045; 87046; 87389; 87449; 87899; 88304; 96365; 96367; 96375; A9537; J0696; J1100; J1610; J1885; J1956; J2001; J2250; J2270; J2405; J2704; J3010; J3490; J7050; Q9961

== ENCOUNTER 2018-07-01 02:50 | Emergency (ER) | payer OTHER ==
[2018-07-01] MEDS ORDERED: Morphine 4 MG/ML VIAL ONE ×2 (03:14→08:30)
[2018-07-01 03:25] LABS: #Basophils 0.1 thou/uL (0.0-0.2); #Eosinphils 0.1 thou/uL (0.0-0.7); #Lymphocytes 2.5 thou/uL (1.20-3.40); #Monocytes 1.1 thou/uL (0.11-0.59); #Neutrophils 9.2 thou/uL (1.40-6.50); %Eosinophils 1.1 % (0.0-10.0); %Monocytes 8.2 % (0.0-10.0); %Neutrophils 70.9 % (42.0-75.0); Mean Corpuscular HGB CONC 31.5 g/dL (32.0-36.0); Mean Corpuscular Hemoglobin 28.4 pg (27.0-31.0); Mean Corpuscular Volume 89.9 fL (78.0-98.0); Mean Platelet Volume 8.7 fL (7.4-10.4); Platelet Count 371 thou/uL (130-400); RBC Distribution Width 13.1 % (11.5-14.5); Red Blood Cell (RBC) Count 4.57 mill/uL (4.20-5.40)
[2018-07-01 03:43] LABS: ALT (SGPT) 34 U/L (8-55); AST (SGOT) 33 U/L (5-34); Albumin 3.2 g/dL (3.5-5.0); Alkaline Phosphatase 93 U/L (40-150); Anion Gap 16 mmol/L (10-20); BUN (Urea Nitrogen) 10 mg/dL (7.0-18.7); Bilirubin, Total 0.2 mg/dL (0.2-1.2); Calc. Creatinine Clearance 0 mL/min (70-130); Calcium 9.2 mg/dL (7.8-10.44); Carbon Dioxide 25 mmol/L (22-29); Chloride 105 mmol/L (98-107); Estimated GFR-MDRD Greater than 90; Globulin 3.9 g/dL (2.4-3.5); Glucose 91 mg/dL (70-105); Potassium 4.1 mmol/L (3.5-5.1); Protein, Total 7.1 g/dL (6.0-8.3); Sodium 142 mmol/L (136-145)
[2018-07-01 06:22] LABS: Bilirubin Negative (Negative); Blood, Urine Negative (Negative); Clarity CLOUDY (Clear); Glucose, Urine (Dipstick) Negative (Negative); Leukocyte Negative (Negative); Nitrite Negative (Negative); Pregnancy Test - Urine (BHCG) Negative (Negative); Pregu Control Background? CLEAR/WHITE (CLR/WHITE); Pregu Control Bar Appear? YES (CONTROL BAR); Protein, Urine (Dipstick) Negative (Neg-Trace); Specific Gravity 1.016 (1.002-1.036); Specific Gravity, Urine 1.016 (1.002-1.036); Urobilinogen 0.2 mg/dL (0.2-1.0)
--- NOTE | 2018-07-01 07:42 | CT ---
CT ABDOMEN AND PELVIS WITH CONTRAST: DATE: 06/26/2018. CLINICAL HISTORY: Epigastric pain. History of a recent diagnosis of colitis on CT scan. FINDINGS: There is redemonstration of slight wall prominence of portions of the left hemicolon with surrounding fat stranding and edema. There is an encapsulated, peripherally hyperdense fluid collection at the posterior, dependent aspect of the pelvis, the configuration of which does not demonstrate typical ap pearance for free fluid. There is heterogeneity of the adjacent uterus and adnexa. The urinary blad ivory is decompressed. No disseminated free air. There are cholecystectomy clips and there is an irre gular fluid and air collection of the gallbladder fossa with mild surrounding hyperdensity of the adj acent hepatic parenchyma which could relate to enhancement or a component of relative fatty sparing g iven a generalized decreased attenuation of the hepatic parenchyma. There is a pleural-based and par enchymal density at the inferior chest, incompletely evaluated. Abdominal aorta is normal in caliber . Punctate hypoattenuation of the superior aspect of the right kidney may relate to volume averaging of a small parenchymal cleft. Postoperative air density is seen within the ventral subcutaneous tis sues of the abdominal wall. No evidence of small bowel obstruction. Contrast is primarily located w ithin the colon. IMPRESSION: 1. Comparing to prior CT, interval cholecystectomy. There is irregular fluid and air collection with adjacent, somewhat irregular-appearing presumed enhancement of the hepatic parenchyma. This co uld relate to a superimposed infection. Recommend clinical correlation in this regard. The possibil ity of a bile leak is also a consideration and there is a nondependent-appearing, fairly well encapsu lated fluid collection of the posterior pelvic cavity. 2. There is redemonstration of mild wall prominence of the left hemicolon with slight surroundin g fat stranding and fluid. Given patient's history of recent surgery, recommend surgical consultatio n for further evaluation. 3. If there is concern for bile leak, a HIDA scan may be obtained for further assessment in this regard. In addition, recommend correlate with liver function enzymes to exclude a concomitant infec tious/inflammatory hepatitis. POS: SHANIQUE
[2018-07-01] MEDS ORDERED: Ondansetron PF 4 MG/2 ML Vial ONE (08:30)
[2018-07-01] MEDS ORDERED: ISOVUE-370 76%-LOCM 1 ML ONE (09:44)
--- NOTE | 2018-07-01 10:49 | NM ---
HIDA SCAN: History: Status post cholecystectomy. Evaluate for bile leak. Patient reports abdominal pain. Dose: 5.1 mCi Technetium 99M Choletec. Images obtained: Dynamic. FINDINGS: There is uptake of the radial isotope with concentration seen of the biliary system. The isotope pass es into the duodenum. No evidence of extravasation seen outside of the biliary system to suggest a bi le leak. IMPRESSION: Normal post cholecystectomy HIDA scan with no evidence of bile leak seen. POS: VICKIE
== END 2018-07-01 11:12 | disposition home or self-care (01) ==
LOC: ERS 02:50
DX: G89.18 Other acute postprocedural pain (principal); R10.13 Epigastric pain; F32.9 Major depressive disorder, single episode, unspecified; Z87.891 Personal history of nicotine dependence; Z79.899 Other long term (current) drug therapy
CPT/HCPCS: 36415; 36416; 74177; 78226; 80053; 81003; 81025; 83690; 85025; 96374; 96375; 96376; A9537; J2270; J2405; Q9966

== ENCOUNTER 2023-09-17 09:37 | Outpatient (CLI) | payer OTHER | END 2023-09-17 09:38 | disposition home or self-care (01) | LOC: BICCT 09:37 | PROVIDERS: ATTEND Student in an Organized Health Care Education/Training Program | DX: J35.1 Hypertrophy of tonsils (principal); E07.9 Disorder of thyroid, unspecified | CPT/HCPCS: 70491; 82565 ==